=== PATIENT | male | born 1960 | race Caucasian/White ===

== ENCOUNTER 2021-09-08 18:03 | Emergency (ER) | payer BC ==
[2021-09-08 19:00] LABS: #Basophils 0.1 10x3/uL (0.0-0.2); #Eosinphils 0.3 10x3/uL (0.0-0.5); #Monocytes 0.9 10x3/uL (0.0-1.1); #Neutrophils 4.8 10x3/uL (1.5-8.4); %Basophils 1.1 % (0.0-2.0); %Eosinophils 3.5 % (0.0-6.0); %Lymphocytes 28.1 % (18.0-47.0); %Monocytes 10.8 % (0.0-10.0); %Neutrophils 56.1 % (40.0-75.0); Hemoglobin 13.6 g/dL (13.5-17.5); Mean Corpuscular HGB CONC 32.6 g/dL (32.0-36.0); Mean Corpuscular Hemoglobin 29.2 pg (27.0-33.0); Mean Corpuscular Volume 89.7 fl (81.2-95.1); Mean Platelet Volume 10.9 fl (7.4-10.4); Platelet Count 222 10x3/uL (150-450); RBC Distribution Width 13.7 % (11.5-14.5); Red Blood Cell (RBC) Count 4.65 10x6/uL (4.32-5.72); White Blood Cell (WBC) Count 8.5 10x3/uL (3.5-10.5)
[2021-09-08 19:11] LABS: PTT 26.8 sec (22.0-33.0); Prothrombin Time 10.6 sec (9.5-12.1)
[2021-09-08 19:16] LABS: ALT (SGPT) 23 U/L (8-55); AST (SGOT) 18 U/L (5-34); Albumin 4.5 g/dL (3.4-4.8); Alkaline Phosphatase 85 U/L (40-110); Anion Gap 14 mmol/L (10-20); BUN (Urea Nitrogen) 12 mg/dL (8.4-25.7); Calc. Creatinine Clearance 0 mL/min (70-130); Calcium 9.2 mg/dL (7.8-10.44); Carbon Dioxide 25 mmol/L (23-31); Chloride 104 mmol/L (98-107); Estimated GFR 86; Globulin 2.3 g/dL (2.4-3.5); Glucose 92 mg/dL (80-115); Potassium 4.3 mmol/L (3.5-5.1); Protein, Total 6.8 g/dL (5.8-8.1); Sodium 139 mmol/L (136-145)
== END 2021-09-08 20:07 | disposition home or self-care (01) ==
LOC: CSHERS 18:03
DX: S09.90XA Unspecified injury of head, initial encounter (principal); R55 Syncope and collapse; W19.XXXA Unspecified fall, initial encounter
CPT/HCPCS: 70450; 71045; 80053; 84484; 85025; 85610; 85730; 93005

== ENCOUNTER 2022-09-24 11:21 | Observation (INO) | payer BC ==
[2022-09-24] MEDS ORDERED: fentaNYL 50 mcg/mL 1 mL Vial ONE ×2 (11:57→12:22)
[2022-09-24] MEDS ORDERED: Ondansetron PF 4 MG/2 ML Vial ONE (11:57)
[2022-09-24] MEDS ORDERED: Piperacillin/Tazobactam 4.5 GM VIAL ONE (11:58)
[2022-09-24 12:08] LABS: #Basophils 0.1 10x3/uL (0.0-0.2); #Monocytes 0.5 10x3/uL (0.0-1.1); #Neutrophils 11.8 10x3/uL (1.5-8.4); %Basophils 0.4 % (0.0-2.0); %Eosinophils 0.1 % (0.0-6.0); %Lymphocytes 12.2 % (18.0-47.0); %Monocytes 3.3 % (0.0-10.0); %Neutrophils 83.6 % (40.0-75.0); Mean Corpuscular HGB CONC 34.1 g/dL (32.0-36.0); Platelet Count 214 10x3/uL (150-450); RBC Distribution Width 13.5 % (11.5-14.5); Red Blood Cell (RBC) Count 4.67 10x6/uL (4.32-5.72); White Blood Cell (WBC) Count 14.1 10x3/uL (3.5-10.5)
[2022-09-24 12:18] LABS: PTT 24.3 sec (22.0-33.0); Prothrombin Time 10.3 sec (9.5-12.1)
[2022-09-24] MEDS ORDERED: Lidocaine 1% PF 5 ML VIAL ONE (12:34)
[2022-09-24] MEDS ORDERED: Dexamethasone 4 mg/ml Vial ONE (12:34)
[2022-09-24] MEDS ORDERED: PROPOFOL 20 ML ONE (12:34)
[2022-09-24] MEDS ORDERED: Fentanyl 250 MCG/5 ML VIAL ONE (12:34)
[2022-09-24] MEDS ORDERED: Midazolam HCl 2 mg/2 ml Vial ONE (12:34)
[2022-09-24] MEDS ORDERED: Rocuronium Bromide 10 MG/ML (10ML VIAL) ONE (12:34)
[2022-09-24 12:36] LABS: ALT (SGPT) 26 U/L (8-55); AST (SGOT) 25 U/L (5-34); Albumin 4.4 g/dL (3.4-4.8); Alkaline Phosphatase 83 U/L (40-110); Anion Gap 16 mmol/L (10-20); BUN (Urea Nitrogen) 12 mg/dL (8.4-25.7); Calc. Creatinine Clearance 0 mL/min (70-130); Calcium 9.4 mg/dL (7.8-10.44); Carbon Dioxide 22 mmol/L (23-31); Chloride 106 mmol/L (98-107); Estimated GFR 99; Globulin 2.3 g/dL (2.4-3.5); Glucose 164 mg/dL (80-115); Protein, Total 6.7 g/dL (5.8-8.1); Sodium 140 mmol/L (136-145)
[2022-09-24] MEDS ORDERED: Succinylcholine 200 MG/10 ml SYRINGE FS ONE (12:36)
[2022-09-24] MEDS ORDERED: Glycopyrrolate 0.2 MG/ML 5 ML SYRINGE ONE (12:43)
[2022-09-24] MEDS ORDERED: Vasopressin 20 UNITS/ML VIAL ONE (14:12)
[2022-09-24] MEDS ORDERED: Bupivacaine PF 0.5% 30 ML VIAL ONE (15:04)
[2022-09-24] MEDS ORDERED: traMADol HCl 50 MG TAB PO PRN (15:31)
[2022-09-24] MEDS ORDERED: Ibuprofen 400 MG TAB PO PRN (15:31)
[2022-09-24] MEDS ORDERED: Bupivacaine HCl 0.5%/Epinephrine 1:200,000/PF 30 ml Vial ONE (15:52)
[2022-09-24] MEDS ORDERED: traMADol HCl 50 MG TAB PO SCH (17:00)
[2022-09-24 17:06] VITALS: BMI 28.7
[2022-09-24] MEDS: Acetaminophen 500 MG TAB PO SCH ×2 (18:03→23:57)
[2022-09-24] MEDS: traMADol HCl 50 MG TAB PO SCH (18:04)
[2022-09-25] MEDS: traMADol HCl 50 MG TAB PO SCH ×2 (00:35→05:08)
[2022-09-25] MEDS: Acetaminophen 500 MG TAB PO SCH (05:09)
[2022-09-25 08:08] VITALS: BP 94/52; TEMP 98.1
[2022-09-25] MEDS ORDERED: Ibuprofen 400 MG TAB PO PRN (11:29)
== END 2022-09-25 11:15 | disposition home or self-care (01) ==
LOC: CSHERS 11:21 → CSHICU 15:31 → INTOOBSV 15:31
PROVIDERS: ADMIT Surgery; ATTEND Surgery
PROC: 0YQ50ZZ Repair Right Inguinal Region, Open Approach (ICD-10-PCS; principal; 2022-09-24)
DX: K40.30 Unilateral inguinal hernia, with obstruction, without gangrene, not specified as recurrent (principal); E78.5 Hyperlipidemia, unspecified; I42.9 Cardiomyopathy, unspecified; Z79.82 Long term (current) use of aspirin; Z90.49 Acquired absence of other specified parts of digestive tract; Z79.899 Other long term (current) drug therapy
CPT/HCPCS: 80053; 83605; 85025; 85610; 85730; 86850; 86900; 86901; 88302; 88311; 93005; C1781; J1100; J2250; J2405; J2543; J2704; J3010; S0020